=== PATIENT | female | born 1940 | race Caucasian/White ===

== ENCOUNTER 2021-02-19 10:48 | Observation (INO) | payer MEDICARE, BC ==
--- NOTE | 2021-02-19 11:24 | EDM.PDOC ---
ED HPI GENERAL MEDICAL PROBLEM - General Chief Complaint: Cardiovascular Problem Stated Complaint: MEDICAL VIA [facility] Time Seen by Provider: 02/19/21 11:05 Source of Information: Reports: Patient, Old Records, RN History Limitations: Reports: No Limitations - History of Present Illness INITIAL COMMENTS - FREE TEXT/NARRATIVE: 80 yo female was found at her assisted living facility to have a significant drop in her BP with standing. She has been falling a lot more often lately. Comes in wearing a sling on her L arm for an injury to her L shoulder from a recent fall. It apparently only became known about the BP postural dropping today. Brianna denies fever, CP, diarrhea, vomiting, melena or hematochezia. She recently had a dosage reduction in her Norvasc from 10 mg to 5 mg daily. Onset: Unknown/Unsure Duration: Getting Worse (possibly) Location: Reports: Generalized Quality: Reports: Other (pain not an issue with the BP) Severity: Moderate Improves with: Reports: Other (lying or sitting) Worsens with: Reports: Other (standing) Context: Reports: Other (see HPI) Associated Symptoms: Denies: Chest Pain, Cough, Diaphoresis, Fever/Chills, Headaches, Nausea/Vomiting, Seizure, Shortness of Breath, Syncope, Other (frequent falls) Treatments COLLATOR: Reports: Other (see below) (none) - Related Data Allergies Allergy/AdvReac Type Severity Reaction Status Date / Time adhesive tape Allergy Cannot Verified 12/15/20 10:33 Remember Aminoglycosides Allergy Cannot Verified 12/15/20 10:33 Remember bacitracin Allergy Cannot Verified 12/15/20 10:33 [From Neosporin Remember ([id number])] Mercurial Analogues Allergy Cannot Verified 12/15/20 10:33 Remember neomycin Allergy Cannot Verified 12/15/20 10:33 Remember polymyxin B Allergy Cannot Verified 12/15/20 10:33 Remember propylene glycol Allergy Cannot Verified 12/15/20 10:33 Remember Home Meds: Home Meds Acetaminophen [Tylenol] 650 mg PO Q6H PRN 12/14/20 [History] Ascorbic Acid [Vitamin C] 1,000 mg PO DAILY 12/14/20 [History] Cholecalciferol (Vitamin D3) [Vitamin D3] 2,000 unit PO DAILY 12/14/20 [History] Docusate Sodium 200 mg PO BEDTIME 12/14/20 [History] Donepezil HCl [Aricept] 10 mg PO DAILY 12/14/20 [History] Fluticasone Propionate [Flonase Allergy Relief] 1 spray MAX Q12H PRN 12/14/20 [History] Levothyroxine Sodium [Synthroid] 50 mcg PO ACBREAKFAST 12/14/20 [History] Lidocaine [Aspercreme] 1 each TP DAILY PRN 12/14/20 [History] Pantoprazole Sodium [Protonix] 40 mg PO DAILY 12/14/20 [History] Sertraline HCl 37.5 mg PO DAILY 12/14/20 [History] amLODIPine Besylate [Norvasc] 5 mg PO DAILY 12/14/20 [History] risperiDONE [RisperiDAL] 0.25 mg PO DAILY 12/14/20 [History] Calcium Carbonate [Tums] 1 tab PO DAILY PRN 12/15/20 [History] Past Medical History HEENT History: Reports: Impaired Vision Cardiovascular History: Reports: Hypertension, Other (See Below) 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 Gastrointestinal History: Reports: Inflammatory Bowel Disease Musculoskeletal History: Reports: Other (See Below) Other Musculoskeletal History: broken collar bone Psychiatric History: Reports: Dementia, Depression Endocrine/Metabolic History: Reports: Hypothyroidism Oncologic (Cancer) History: Reports: Hodgkin's Lymphoma - Infectious Disease History Infectious Disease History: Reports: Chicken Pox, Measles, Mumps Social & Family History - Tobacco Use Tobacco Use Status *Q: Never Tobacco User - Caffeine Use Caffeine Use: Reports: Coffee ED ROS GENERAL - Review of Systems Review Of Systems: See Below Constitutional: Reports: No Symptoms HEENT: Reports: No Symptoms Respiratory: Reports: No Symptoms Cardiovascular: Reports: Lightheadedness (with standing) GI/Abdominal: Reports: No Symptoms. Denies: Black Stool, Bloody Stool, Diarrhea, Hematemesis, Hematochezia, Melena, Nausea, Vomiting : Reports: No Symptoms Musculoskeletal: Reports: No Symptoms Skin: Reports: Bruising (L shoulder area from a previous fall) Neurological: Reports: No Symptoms ED EXAM, GENERAL - Physical Exam Exam: See Below Exam Limited By: No Limitations General Appearance: Alert, WD/WN, No Apparent Distress Eye Exam: Bilateral Eye: Normal Inspection Ears: Normal External Exam, Normal Canal, Hearing Grossly Normal Ear Exam: Bilateral Ear: Auricle Normal, Canal Normal Nose: Normal Inspection, No Blood Throat/Mouth: Normal Inspection, Normal Lips, Normal Oropharynx, Normal Voice, No Airway Compromise Head: Atraumatic, Normocephalic Neck: Normal Inspection Respiratory/Chest: No Respiratory Distress, Lungs Clear, Normal Breath Sounds, No Accessory Muscle Use Cardiovascular: Regular Rate, Rhythm, No Edema GI/Abdominal: Normal Bowel Sounds, Soft, Non-Tender, No Distention Extremities: Normal Inspection, Normal Range of Motion, Non-Tender, Pedal Edema (trace pitting edema to both lower legs). No: No Pedal Edema Neurological: Alert, Oriented, CN II-XII Intact, Normal Cognition, No Larry r/Sensory Deficits Psychiatric: Normal Affect, Normal Mood Skin Exam: Warm, Dry, Intact, Normal Color, No Rash, Ecchymosis (L shoulder area) Course - Vital Signs Text/Narrative:: discussed with Dr. Stallworth @ [facility] Last Recorded V/S: Last Vital Signs Temp 36.4 C 02/19/21 11:03 Pulse 58 L 02/19/21 11:03 Resp 19 02/19/21 11:03 BP 176/67 H 02/19/21 11:03 Pulse Ox 97 02/19/21 11:03 Orthostatic Blood Pressure [ 178/71 Standing] Orthostatic Blood Pressure [ 157/68 Sitting] Orthostatic Blood Pressure [ 109/60 Supine] - Orders/Labs/Meds Orders: Active Orders 24 hr Category Date Time Status Orthostatic Vital Signs [RC] ASDIRECTED Care 02/19/21 13:28 Active Labs: Laboratory Tests 02/19/21 02/19/21 02/19/21 Range/Units 11:24 11:24 12:31 WBC 6.0 (4.5-11.0) K/uL RBC 4.18 (3.30-5.50) M/uL Hgb 12.5 (12.0-15.0) g/dL Hct 38.0 (36.0-48.0) % MCV 91 (80-98) fL MCH 30 (27-31) pg MCHC 33 (32-36) % Plt Count 228 (150-400) K/uL Sodium 140 (140-148) mmol/L Potassium 4.2 (3.6-5.2) mmol/L Chloride 103 (100-108) mmol/L Carbon Dioxide 29 (21-32) mmol/L Anion Gap 8.2 (5.0-14.0) mmol/L BUN 14 (7-18) mg/dL Creatinine 0.9 (0.6-1.0) mg/dL Est Cr Clr Drug Dosing 47.29 mL/min Estimated GFR (MDRD) > 60 (>60) Glucose 109 H (74-106) mg/dL Calcium 9.3 (8.5-10.1) mg/dL Troponin I < 0.017 (0.000-0.056) ng/mL Urine Color Yellow (YELLOW) Urine Appearance Clear (CLEAR) Urine pH 8.5 H (5.0-8.0) Ur Specific [place] 1.020 (1.008-1.030) Urine Protein Negative (NEGATIVE) mg/dL Urine Glucose (UA) Negative (NEGATIVE) mg/dL Urine Ketones Negative (NEGATIVE) mg/dL Urine Occult Blood Negative (NEGATIVE) Urine Nitrite Negative (NEGATIVE) Urine Bilirubin Negative (NEGATIVE) Urine Urobilinogen 0.2 (0.2-1.0) EU/dL Ur Leukocyte Esterase Negative (NEGATIVE) Urine RBC Not seen (0-5) Urine WBC Not seen (0-5) Ur Epithelial Cells Not seen Amorphous Sediment Few Urine Bacteria Not seen Urine Mucus Few Meds: Medications Discontinued Medications Generic Name Dose Route Start Last Admin Trade Name Zachary PRN Reason Stop Dose Admin Lactated Ringer's 1,000 mls @ 1,000 mls/hr 02/19/21 12:23 02/19/21 12:30 Ringers, Lactated IV 02/19/21 13:22 1,000 mls/hr BOLUS ONE Administration - Re-Assessments/Exams Free Text/Narrative Re-Assessment/Exam: 02/19/21 14:36 no improvement in orthostats after IV fluids x 1 liter Departure - Departure Time of Disposition: 14:36 Disposition: Admitted As Inpatient 68 Condition: Fair Clinical Impression: Orthostatic hypotension Referrals: PCP,None [Primary Care Provider] - Forms: ED Department Discharge Sepsis Event Note (ED) - Evaluation Sepsis Screening Result: No Definite Risk - Focused Exam Vital Signs: Vital Signs Temp Pulse Resp BP Pulse Ox 02/19/21 11:03 36.4 C 58 L 19 176/67 H 97 02/19/21 10:54 36.4 C 58 L 19 176/67 H 97 - My Orders Last 24 Hours: My Active Orders 02/19/21 13:28 Orthostatic Vital Signs [RC] ASDIRECTED - Assessment/Plan Last 24 Hours: My Active Orders 02/19/21 13:28 Orthostatic Vital Signs [RC] ASDIRECTED
[2021-02-19] MEDS ORDERED: Lactated Ringers 1,000 ML IV ONE (12:23)
--- NOTE | 2021-02-19 15:03 | PCM.HP.2 ---
H&P History of Present Illness - General Date of Service: 02/19/21 Admit Problem/Dx: Admission Diagnosis/Problem Admission Diagnosis/Problem Syncope due to orthostatic hypotension Source of Information: Patient, [facility] Records (assisted living), Provider History Limitations: Reports: No Limitations - History of Present Illness Initial Comments - Free Text/Narative: CC: I'm so tired in the morning HPI: Brianna presents to the emergency room today with abnormal orthostatic vital signs noted this morning at her assisted living facility. She has had several falls over the past week or 2. 1 of these falls resulted in a fracture of her left clavicle. She reportedly had another unwitnessed fall last night. Assisted-living staff checked her orthostatic vital signs and noted a significant drop with standing so they sent her to the emergency room. She reports that overall she feels fairly well. She does endorse significant fatigue. She wakes up in the morning tired and has difficulty getting enough motivation to get through the day. Getting through the day has been a struggle because of a lack of energy. She thinks she has been sleeping well. She thinks she has been eating well. With regard to her falls, she thinks that she gets some sort of warning but she does not report any dizziness or lightheadedness. She just has a feeling that something is going to happen and tries to find someplace solid to hold on. She has not had shortness of breath, chest pain or palpitations. No abdominal pain or nausea. No change in bowel or bladder habits. She did recently have her amlodipine decreased from 10 to 5 mg. No other new medications or medication changes. No fevers. Work-up in the emergency room revealed a significant orthostatic change but laboratory studies are unremarkable. Patient received 1 L of fluids and still had a significant drop in her orthostatic vital signs so she will be admitted for observation. - Related Data Allergies/Adverse Reactions: Allergies Allergy/AdvReac Type Severity Reaction Status Date / Time adhesive tape Allergy Cannot Verified 12/15/20 10:33 Remember Aminoglycosides Allergy Cannot Verified 12/15/20 10:33 Remember bacitracin Allergy Cannot Verified 12/15/20 10:33 [From Neosporin Remember ([id number])] Mercurial Analogues Allergy Cannot Verified 12/15/20 10:33 Remember neomycin Allergy Cannot Verified 12/15/20 10:33 Remember polymyxin B Allergy Cannot Verified 12/15/20 10:33 Remember propylene glycol Allergy Cannot Verified 12/15/20 10:33 Remember Home Medications: Home Meds Acetaminophen [Tylenol] 650 mg PO Q6H PRN 12/14/20 [History] Ascorbic Acid [Vitamin C] 1,000 mg PO DAILY 12/14/20 [History] Cholecalciferol (Vitamin D3) [Vitamin D3] 2,000 unit PO DAILY 12/14/20 [History] Docusate Sodium 200 mg PO BEDTIME 12/14/20 [History] Donepezil HCl [Aricept] 10 mg PO DAILY 12/14/20 [History] Fluticasone Propionate [Flonase Allergy Relief] 1 spray MAX Q12H PRN 12/14/20 [History] Levothyroxine Sodium [Synthroid] 50 mcg PO ACBREAKFAST 12/14/20 [History] Lidocaine [Aspercreme] 1 each TP DAILY PRN 12/14/20 [History] Pantoprazole Sodium [Protonix] 40 mg PO DAILY 12/14/20 [History] Sertraline HCl 37.5 mg PO DAILY 12/14/20 [History] amLODIPine Besylate [Norvasc] 5 mg PO DAILY 12/14/20 [History] risperiDONE [RisperiDAL] 0.25 mg PO DAILY 12/14/20 [History] Calcium Carbonate [Tums] 1 tab PO DAILY PRN 12/15/20 [History] Past Medical History HEENT History: Reports: Impaired Vision Cardiovascular History: Reports: Hypertension, Other (See Below) 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 Gastrointestinal History: Reports: Inflammatory Bowel Disease Musculoskeletal History: Reports: Other (See Below) Other Musculoskeletal History: broken collar bone Psychiatric History: Reports: Dementia, Depression Endocrine/Metabolic History: Reports: Hypothyroidism Oncologic (Cancer) History: Reports: Hodgkin's Lymphoma - Infectious Disease History Infectious Disease History: Reports: Chicken Pox, Measles, Mumps Social & Family History - Family History Cardiac: Denies: CAD - Tobacco Use Tobacco Use Status *Q: Never Tobacco User - Caffeine Use Caffeine Use: Reports: Coffee - Alcohol Use Alcohol Use History: No H&P Review of Systems - Review of Systems: Review Of Systems: See Below Free Text/Narrative: A complete 12 point review of systems was obtained. Pertinent positives and negatives are noted in the history of present illness. All other systems were reviewed and were negative except as noted. Exam - Exam Exam: See Below - Vital Signs Vital Signs: Last Vital Signs Temp 36.4 C 02/19/21 11:03 Pulse 58 L 02/19/21 11:03 Resp 19 02/19/21 11:03 BP 176/67 H 02/19/21 11:03 Pulse Ox 97 02/19/21 11:03 Orthostatic Blood Pressure [ 178/71 Standing] Orthostatic Blood Pressure [ 157/68 Sitting] Orthostatic Blood Pressure [ 109/60 Supine] Weight: 62.596 kg - Exam Quality Assessment: No: Supplemental Oxygen General: Alert, Oriented, Cooperative. No: Mild Distress HEENT: Conjunctiva Clear, Mucosa Moist & [place] Neck: Supple, Trachea Midline Lungs: Clear to Auscultation, Normal Respiratory Effort Cardiovascular: Regular Rate, Regular Rhythm. No: Systolic Murmur, Gallop/S3 GI/Abdominal Exam: Normal Bowel Sounds, Soft, Non-Tender, No Distention Back Exam: Normal Inspection, Full Range of Motion Extremities: No Pedal Edema. No: Increased Warmth Peripheral Pulses: 2+: Dorsalis Pedis (L), Dorsalis Pedis (R) Skin: Warm, Dry Neuro Extensive - Mental Status: Alert, Nl Response to Commands Neuro Extensive - Motor, Sensory, Reflexes: No: Dysarthria, Abnormal Motor Psychiatric: Alert, Normal Affect - Patient Data Lab Results Last 24 hrs: Laboratory Results - last 24 hr 02/19/21 02/19/21 02/19/21 Range/Units 11:24 11:24 12:31 WBC 6.0 (4.5-11.0) K/uL RBC 4.18 (3.30-5.50) M/uL Hgb 12.5 (12.0-15.0) g/dL Hct 38.0 (36.0-48.0) % MCV 91 (80-98) fL MCH 30 (27-31) pg MCHC 33 (32-36) % Plt Count 228 (150-400) K/uL Sodium 140 (140-148) mmol/L Potassium 4.2 (3.6-5.2) mmol/L Chloride 103 (100-108) mmol/L Carbon Dioxide 29 (21-32) mmol/L Anion Gap 8.2 (5.0-14.0) mmol/L BUN 14 (7-18) mg/dL Creatinine 0.9 (0.6-1.0) mg/dL Est Cr Clr Drug Dosing 47.29 mL/min Estimated GFR (MDRD) > 60 (>60) Glucose 109 H (74-106) mg/dL Calcium 9.3 (8.5-10.1) mg/dL Troponin I < 0.017 (0.000-0.056) ng/mL Urine Color Yellow (YELLOW) Urine Appearance Clear (CLEAR) Urine pH 8.5 H (5.0-8.0) Ur Specific [place] 1.020 (1.008-1.030) Urine Protein Negative (NEGATIVE) mg/dL Urine Glucose (UA) Negative (NEGATIVE) mg/dL Urine Ketones Negative (NEGATIVE) mg/dL Urine Occult Blood Negative (NEGATIVE) Urine Nitrite Negative (NEGATIVE) Urine Bilirubin Negative (NEGATIVE) Urine Urobilinogen 0.2 (0.2-1.0) EU/dL Ur Leukocyte Esterase Negative (NEGATIVE) Urine RBC Not seen (0-5) Urine WBC Not seen (0-5) Ur Epithelial Cells Not seen Amorphous Sediment Few Urine Bacteria Not seen Urine Mucus Few Result Diagrams: 02/19/21 11:24 02/19/21 11:24 Sepsis Event Note - Evaluation Sepsis Screening Result: No Definite Risk - Focused Exam Vital Signs: Vital Signs Temp Pulse Resp BP Pulse Ox 02/19/21 11:03 36.4 C 58 L 19 176/67 H 97 02/19/21 10:54 36.4 C 58 L 19 176/67 H 97 *Q Meaningful Use (ADM) - VTE Risk Assess *Q Each Risk Factor Represents 1 Point: None Total Score 1 Point Risk Factors: 0 Each Risk Factor Represents 2 Points: Malignancy (present or previous) Total Score 2 Point Risk Factors: 2 Each Risk Factor Represents 3 Points: Age 75 Years or Greater Total Score 3 Point Risk Factors: 3 Each Risk Factor Represents 5 Points: None Total Score 5 Point Risk Factors: 0 Venous Thromboembolism Risk Factor Score *Q: 5 - Problem List (1) Syncope due to orthostatic hypotension SNOMED Code(s): 074532887 ICD Code: I95.1 - ORTHOSTATIC HYPOTENSION Status: Acute Current Visit: Yes (2) Alzheimer's dementia without behavioral disturbance SNOMED Code(s): 79862990 ICD Code: G30.9 - ALZHEIMER'S DISEASE, UNSPECIFIED; F02.80 - DEMENTIA IN OTH DISEASES CLASSD ELSWHR W/O BEHAVRL DISTURB Status: Chronic Current Visit: Yes Qualifiers: Alzheimer's disease onset: late-onset Qualified Code(s): G30.1 - Alzheimer's disease with late onset; F02.80 - Dementia in other diseases classified elsewhere without behavioral disturbance (3) Essential hypertension SNOMED Code(s): 46725327 ICD Code: I10 - ESSENTIAL (PRIMARY) HYPERTENSION Status: Chronic Current Visit: Yes Problem List Initiated/Reviewed/Updated: Yes Orders Last 24hrs: Active Orders 24 hr Category Date Time Status Patient Status Manage Transfer [TRANSFER] Routine ADT 02/19/21 14:53 Ordered Orthostatic Vital Signs [RC] ASDIRECTED Care 02/19/21 13:28 Active Resuscitation Status Routine Resus Stat 02/19/21 14:55 Ordered Assessment/Plan Comment:: ASSESSMENT AND PLAN - Orthostatic hypotension with syncope-biggest suspicion at this time is for medications with most concerning potential culprits being the donepezil versus amlodipine. Blood pressure is actually on the high side try and hesitant to stop the amlodipine. She is borderline bradycardic. With bradycardia and syncope potential side effects of the donepezil this seems like the best place to start. She is not dehydrated. There is no evidence for infection. -Stop donepezil -Cardiac monitoring -Repeat orthostatic vitals in the morning -Consider alternative antihypertensive if desired results are not achieved with above changes Alzheimer's dementia without behavioral disturbance-no behavior issues so far. Concerned about donepezil as above. -Continue risperidone -Melatonin at bedtime Essential hypertension-moderate elevation of blood pressure and she may need some additional adjustments but we will hold off on these until her blood pressure has stabilized and the orthostasis resolved. Hypothyroidism-TSH pending Maintenance issues - -DVT prophylaxis-mechanical -GI prophylaxis-PPI -Nutrition-regular -Quijano catheter-not indicated CODE STATUS -DNR/DNI Admission justification -this patient will be admitted for observation to monitor orthostatic changes and for cardiac monitoring during medication lee ges. Disposition -I anticipate discharge back to her assisted living after the hospital stay Primary care physician - Gregory Stallworth M.D. - Mortality Measure Prognosis:: Good
[2021-02-19] MEDS ORDERED: LORazepam 2 MG/ML SDV IVPUSH PRN (15:36)
[2021-02-19] MEDS ORDERED: Ondansetron 4 MG/2 ML SDV IV PRN (15:36)
[2021-02-19] MEDS ORDERED: Ondansetron 4 MG Tab.DIS PO PRN (15:36)
[2021-02-19] MEDS ORDERED: Calcium Carbonate 500 MG Tab.Chew PO PRN (17:25)
[2021-02-19] MEDS ORDERED: Fluticasone Propionate Nasal Spray 16 GM Bottle NAS PRN (17:35)
[2021-02-19] MEDS: risperiDONE 0.5 MG Tab PO SCH (21:24)
[2021-02-19] MEDS: Docusate Sodium 100 MG Cap PO SCH (21:24)
[2021-02-19] MEDS: Melatonin 3 MG Tab PO SCH (21:24)
[2021-02-20] MEDS ORDERED: amLODIPine 5 MG Tab PO SCH (09:00)
[2021-02-20] MEDS: Levothyroxine 50 MCG Tab PO SCH (09:02)
[2021-02-20] MEDS: Sertraline 25 MG Tab PO SCH (09:02)
[2021-02-20] MEDS: Cholecalciferol (Vitamin D3) 25 MCG Tab PO SCH (09:02)
[2021-02-20] MEDS: Ascorbic Acid 500 MG Tab PO SCH (09:03)
[2021-02-20] MEDS: Pantoprazole 40 MG Tab.CR PO SCH (09:03)
[2021-02-20] MEDS: Acetaminophen 325 MG Tab PO PRN ×2 (09:09→16:47)
[2021-02-20] MEDS ORDERED: Pneumococcal Polyvalent-23 Vaccine 0.5 ML SDV IM ONE (10:00)
--- NOTE | 2021-02-20 12:45 | PCM.PN ---
- General Info Date of Service: 02/20/21 Subjective Update: Ms. Gao continues to experience significant orthostasis as a likely cause of her recent weakness and lightheadedness. She is unable to provide meaningful information concerning symptoms or review of systems because of dementia. - Patient Data Vitals - Most Recent: Last Vital Signs Temp 97.9 F 02/20/21 11:00 Pulse 63 02/20/21 11:00 Resp 16 02/20/21 11:00 BP 150/68 H 02/20/21 11:00 Pulse Ox 99 02/20/21 11:00 Orthostatic Blood Pressure [ 99/56 Standing] Orthostatic Blood Pressure [ 184/60 Sitting] Orthostatic Blood Pressure [ 175/54 Supine] Weight - Most Recent: 141 lb 5.061 oz I&O - Last 24 Hours: Intake & Output 02/19/21 02/20/21 02/20/21 22:59 06:59 14:59 Intake Total 200 Output Total 600 250 Balance -600 -250 200 Lab Results Last 24 Hours: Laboratory Results - last 24 hr 02/19/21 02/19/21 Range/Units 11:23 12:31 TSH, Ultra Sensitive 2.040 (0.358-3.740) uIU/mL Urine Color Yellow (YELLOW) Urine Appearance Clear (CLEAR) Urine pH 8.5 H (5.0-8.0) Ur Specific [place] 1.020 (1.008-1.030) Urine Protein Negative (NEGATIVE) mg/dL Urine Glucose (UA) Negative (NEGATIVE) mg/dL Urine Ketones Negative (NEGATIVE) mg/dL Urine Occult Blood Negative (NEGATIVE) Urine Nitrite Negative (NEGATIVE) Urine Bilirubin Negative (NEGATIVE) Urine Urobilinogen 0.2 (0.2-1.0) EU/dL Ur Leukocyte Esterase Negative (NEGATIVE) Urine RBC Not seen (0-5) Urine WBC Not seen (0-5) Ur Epithelial Cells Not seen Amorphous Sediment Few Urine Bacteria Not seen Urine Mucus Few Med Orders - Current: Current Medications Acetaminophen (Acetaminophen 325 Mg Tab) 650 mg PO Q4H PRN PRN Reason: Pain (Mild 1-3)/fever Last Admin: 02/20/21 09:09 Dose: 650 mg Documented by: Ascorbic Acid (Ascorbic Acid 500 Mg Tab) 1,000 mg PO DAILY [facility] Last Admin: 02/20/21 09:03 Dose: 1,000 mg Documented by: Calcium Carbonate/Glycine (Calcium Carbonate 500 Mg Tab.Chew) 500 mg PO DAILY PRN PRN Reason: Heartburn Cholecalciferol (Cholecalciferol (Vitamin D3) 25 Mcg Tab) 50 mcg PO DAILY [facility] Last Admin: 02/20/21 09:02 Dose: 50 mcg Documented by: Docusate Sodium (Docusate Sodium 100 Mg Cap) 200 mg PO BEDTIME [facility] Last Admin: 02/19/21 21:24 Dose: 200 mg Documented by: Fluticasone Propionate (Fluticasone Propionate Nasal [place] 16 Gm Bottle) 0 gm MAX Q12H PRN PRN Reason: Allergies Levothyroxine Sodium (Levothyroxine 50 Mcg Tab) 50 mcg PO ACBREAKFAST [facility] Last Admin: 02/20/21 09:02 Dose: 50 mcg Documented by: Lorazepam (Lorazepam 2 Mg/Ml Sdv) 0.5 mg IVPUSH Q4H PRN PRN Reason: Nausea/Vomiting Magnesium Hydroxide (Magnesium Hydroxide 400 Mg/5 Ml Susp 30 Ml Cup) 30 ml PO Q12H PRN PRN Reason: Constipation Melatonin (Melatonin 3 Mg Tab) 9 mg PO BEDTIME [facility] Last Admin: 02/19/21 21:24 Dose: 9 mg Documented by: Ondansetron HCl (Ondansetron 4 Mg/2 Ml Sdv) 4 mg IV Q6H PRN PRN Reason: Nausea/Vomiting Ondansetron HCl (Ondansetron 4 Mg Tab.Dis) 4 mg PO Q6H PRN PRN Reason: Nausea able to take PO Pantoprazole Sodium (Pantoprazole 40 Mg Tab.Cr) 40 mg PO ACBREAKFAST [facility] Last Admin: 02/20/21 09:03 Dose: 40 mg Documented by: Risperidone (Risperidone 0.5 Mg Tab) 0.25 mg PO BEDTIME [facility] Last Admin: 02/19/21 21:24 Dose: 0.25 mg Documented by: Senna/Docusate Sodium (Docusate Sodium/Sennosides 50-8.6 Mg Tab) 1 tab PO BID PRN PRN Reason: Constipation Sertraline HCl (Sertraline 25 Mg Tab) 37.5 mg PO DAILY [facility] Last Admin: 02/20/21 09:02 Dose: 37.5 mg Documented by: Discontinued Medications Amlodipine Besylate (Amlodipine 5 Mg Tab) 5 mg PO DAILY [facility] Lactated Ringer's (Ringers, Lactated) 1,000 mls @ 1,000 mls/hr IV BOLUS ONE Stop: 02/19/21 13:22 Last Admin: 02/19/21 12:30 Dose: 1,000 mls/hr Documented by: Pneumococcal Polyvalent Vaccine (Pneumococcal Polyvalent-23 Vaccine 0.5 Ml Sdv) 0.5 ml IM .ONCE ONE Stop: 02/20/21 10:01 Last Admin: 02/20/21 11:05 Dose: Not Given Documented by: - Exam General: Alert, Cooperative, Mild Distress Lungs: Clear to Auscultation, Normal Respiratory Effort Cardiovascular: Regular Rate, Regular Rhythm, No Murmurs GI/Abdominal Exam: Soft, Non-Tender, No Organomegaly, No Distention Extremities: Non-Tender, No Pedal Edema Neurological: Other (She is noted to have a very mild resting tremor of her right upper extremity, paucity of movement, and masklike facies.) - Patient Data Lab Results Last 24 hrs: Laboratory Results - last 24 hr 02/19/21 02/19/21 Range/Units 11:23 12:31 TSH, Ultra Sensitive 2.040 (0.358-3.740) uIU/mL Urine Color Yellow (YELLOW) Urine Appearance Clear (CLEAR) Urine pH 8.5 H (5.0-8.0) Ur Specific [place] 1.020 (1.008-1.030) Urine Protein Negative (NEGATIVE) mg/dL Urine Glucose (UA) Negative (NEGATIVE) mg/dL Urine Ketones Negative (NEGATIVE) mg/dL Urine Occult Blood Negative (NEGATIVE) Urine Nitrite Negative (NEGATIVE) Urine Bilirubin Negative (NEGATIVE) Urine Urobilinogen 0.2 (0.2-1.0) EU/dL Ur Leukocyte Esterase Negative (NEGATIVE) Urine RBC Not seen (0-5) Urine WBC Not seen (0-5) Ur Epithelial Cells Not seen Amorphous Sediment Few Urine Bacteria Not seen Urine Mucus Few Result Diagrams: 02/19/21 11:24 02/19/21 11:24 Sepsis Event Note - Evaluation Sepsis Screening Result: No Definite Risk - Focused Exam Vital Signs: Vital Signs Temp Temp Pulse Resp BP Pulse Ox 02/20/21 11:00 97.9 F 63 16 150/68 H 99 02/20/21 07:00 97.9 F 16 148/64 H 100 02/20/21 02:46 97.9 F 74 18 124/71 97 - Problem List Review Problem List Initiated/Reviewed/Updated: Yes - My Orders Last 24 Hours: My Active Orders 02/20/21 12:35 Communication Order [RC] ROUTINE Consult to Dance Hall Host/Hostess [CONS] Routine - Plan Plan:: ASSESSMENT AND PLAN - Orthostatic hypotension with syncope-biggest suspicion at this time is for medications with most concerning potential culprits being the donepezil versus amlodipine. She may also have autonomic insufficiency possibly related to underlying Parkinson's. On exam today is noted to have a mild resting tremor of her right upper extremity with masklike facies and paucity of movement -Stop donepezil -Cardiac monitoring -Repeat orthostatic vitals -Discontinue amlodipine -High sodium diet -Thigh-high support hose, on in a.m. off at at bedtime -Keep head of bed elevated at 45 degrees at all times Alzheimer's dementia without behavioral disturbance-no behavior issues so far. Concerned about donepezil as above. -Continue risperidone -Melatonin at bedtime Essential hypertension Hypothyroidism Maintenance issues - -DVT prophylaxis-mechanical -GI prophylaxis-PPI -Nutrition-regular -Quijano catheter-not indicated CODE STATUS -DNR/DNI Admission justification -this patient will be admitted for observation to monitor orthostatic changes and for cardiac monitoring during medication changes. Disposition -I anticipate discharge back to her assisted living after the hospital stay Primary care physician - Gregory Liu NP
[2021-02-20] MEDS: Docusate Sodium 100 MG Cap PO SCH (21:09)
[2021-02-20] MEDS: Magnesium Hydroxide 400 MG/5 ML Susp 30 ML Cup PO PRN (21:09)
[2021-02-20] MEDS: Melatonin 3 MG Tab PO SCH (21:09)
[2021-02-20] MEDS: risperiDONE 0.5 MG Tab PO SCH (21:09)
[2021-02-21] MEDS: Levothyroxine 50 MCG Tab PO SCH (07:26)
[2021-02-21] MEDS: Pantoprazole 40 MG Tab.CR PO SCH (07:26)
[2021-02-21] MEDS: Sertraline 25 MG Tab PO SCH (09:32)
[2021-02-21] MEDS: Ascorbic Acid 500 MG Tab PO SCH (09:32)
[2021-02-21] MEDS: Magnesium Hydroxide 400 MG/5 ML Susp 30 ML Cup PO PRN (09:32)
[2021-02-21] MEDS: Cholecalciferol (Vitamin D3) 25 MCG Tab PO SCH (09:32)
--- NOTE | 2021-02-21 12:27 | PCM.DCSUM1 ---
Discharge Summary - Hospital Course Brief History: Ms. Gao is a 80-year-old woman who was admitted through the emergency department with weakness, lightheadedness, and recent falls, secondary to orthostatic hypotension. - Discharge Data Discharge Date: 02/21/21 Discharge Disposition: Home, Self-Care 01 Condition: Fair - Referral to Home Health Primary Care Physician: PCP None - Discharge Diagnosis/Problem(s) (1) Orthostatic hypotension SNOMED Code(s): 02030894 ICD Code: I95.1 - ORTHOSTATIC HYPOTENSION Status: Acute Current Visit: Yes (2) Syncope due to orthostatic hypotension SNOMED Code(s): 668378220 ICD Code: I95.1 - ORTHOSTATIC HYPOTENSION Status: Acute Current Visit: Yes (3) Alzheimer's dementia without behavioral disturbance SNOMED Code(s): 14329930 ICD Code: G30.9 - ALZHEIMER'S DISEASE, UNSPECIFIED; F02.80 - DEMENTIA IN OTH DISEASES CLASSD ELSWHR W/O BEHAVRL DISTURB Status: Chronic Current Visit: Yes Qualifiers: Alzheimer's disease onset: late-onset Qualified Code(s): G30.1 - Alzheimer's disease with late onset; F02.80 - Dementia in other diseases classified elsewhere without behavioral disturbance (4) History of CVA (cerebrovascular accident) SNOMED Code(s): 951413084 ICD Code: Z86.73 - PRSNL HX OF TIA (TIA), AND CEREB INFRC W/O RESID DEFICITS Status: Chronic Current Visit: No - Patient Summary/Data Consults: Consultations 02/20/21 07:00 PT Evaluation and Treatment [CONS] Routine Please Evaluate and Treat. PT Reason for Consult: Strengthening This query below is only for informational purposes and is not editable. 02/20/21 12:35 Consult to Research Quality Assurance Analyst [CONS] Routine Comment: Physician Instructions: Quantity: Reason for Consult: High sodium diet for orthostatic hypotension Hospital Course: Ms. Gao presented to the emergency room with abnormal orthostatic vital signs noted at her assisted living facility. She has had several falls over the past week or 2. 1 of these falls resulted in a fracture of her left clavicle. She reportedly had another unwitnessed fall on the evening prior to admission. Assisted-living staff checked her orthostatic vital signs and noted a significant drop with standing so they sent her to the emergency room. She reports that overall she feels fairly well. She does endorse significant fatigue. She wakes up in the morning tired and has difficulty getting enough motivation to get through the day. Getting through the day has been a struggle because of a lack of energy. Work-up in the emergency room revealed a significant orthostatic change but laboratory studies are unremarkable. Patient received 1 L of fluids and still had a significant drop in her orthostatic vital signs so she was admitted for observation. She received further IV fluids through the night but remained orthostatic. Aricept was discontinued because of possible contribution to orthostasis. Amlodipine was also discontinued and she was placed on a high sodium diet. Head of her bed was kept elevated at 45 degrees. While hospitalized she did show some signs that might be consistent with Parkinson's disease including a slight pill-rolling tremor of her right upper extremity, paucity of movement, and masklike facies. By the time of discharge orthostasis had improved significantly and she denied symptoms of lightheadedness. She will be discharged to the snf because she is not felt to be safe for discharge back to her semiindependent living situation. Consider neurology consult for further evaluation of possible Parkinson's disease. Activity will be as tolerated and she will resume her usual diet. - Patient Instructions Diet, Other: High sodium diet Activity: As Tolerated Activity, Other: Keep head of bed elevated at 45 degrees at all times Other/Special Instructions: Please schedule follow-up appointment with primary care provider within 1 week - Discharge Plan *PRESCRIPTION DRUG MONITORING PROGRAM REVIEWED*: Not Applicable *COPY OF PRESCRIPTION DRUG MONITORING REPORT IN PATIENT SUSAN: Not Applicable Home Medications: Home Meds Acetaminophen [Tylenol] 650 mg PO Q6H PRN 12/14/20 [History] Ascorbic Acid [Vitamin C] 1,000 mg PO DAILY 12/14/20 [History] Cholecalciferol (Vitamin D3) [Vitamin D3] 2,000 unit PO DAILY 12/14/20 [History] Docusate Sodium 200 mg PO BEDTIME 12/14/20 [History] Fluticasone Propionate [Flonase Allergy Relief] 1 spray MAX Q12H PRN 12/14/20 [History] Levothyroxine Sodium [Synthroid] 50 mcg PO ACBREAKFAST 12/14/20 [History] Lidocaine [Aspercreme Lidocaine] 1 each TP DAILY PRN 12/14/20 [History] Pantoprazole Sodium [Protonix] 40 mg PO DAILY 12/14/20 [History] Sertraline HCl 37.5 mg PO DAILY 12/14/20 [History] risperiDONE [RisperiDAL] 0.25 mg PO DAILY 12/14/20 [History] Calcium Carbonate [Tums] 1 tab PO DAILY PRN 12/15/20 [History] Referrals: Daniele Harden MD [Physician] - - Discharge Summary/Plan Comment DC Time >30 min.: No - Patient Data Vitals - Most Recent: Last Vital Signs Temp 97.9 F 02/21/21 12:00 Pulse 60 02/21/21 12:00 Resp 16 02/21/21 12:00 BP 137/61 02/21/21 12:00 Pulse Ox 98 02/21/21 12:00 Orthostatic Blood Pressure [ 133/68 Standing] Orthostatic Blood Pressure [ 149/60 Sitting] Orthostatic Blood Pressure [ 175/54 Supine] Weight - Most Recent: 141 lb 5.061 oz I&O - Last 24 hours: Intake & Output 02/20/21 02/21/21 02/21/21 22:59 06:59 14:59 Intake Total 620 660 Output Total 400 225 150 Balance -400 395 510 Med Orders - Current: Current Medications Acetaminophen (Acetaminophen 325 Mg Tab) 650 mg PO Q4H PRN PRN Reason: Pain (Mild 1-3)/fever Last Admin: 02/20/21 16:47 Dose: 650 mg Documented by: Ascorbic Acid (Ascorbic Acid 500 Mg Tab) 1,000 mg PO DAILY [facility] Last Admin: 02/21/21 09:32 Dose: 1,000 mg Documented by: Calcium Carbonate/Glycine (Calcium Carbonate 500 Mg Tab.Chew) 500 mg PO DAILY PRN PRN Reason: Heartburn Cholecalciferol (Cholecalciferol (Vitamin D3) 25 Mcg Tab) 50 mcg PO DAILY [facility] Last Admin: 02/21/21 09:32 Dose: 50 mcg Documented by: Docusate Sodium (Docusate Sodium 100 Mg Cap) 200 mg PO BEDTIME [facility] Last Admin: 02/20/21 21:09 Dose: 200 mg Documented by: Fluticasone Propionate (Fluticasone Propionate Nasal [place] 16 Gm Bottle) 0 gm MAX Q12H PRN PRN Reason: Allergies Levothyroxine Sodium (Levothyroxine 50 Mcg Tab) 50 mcg PO ACBREAKFAST [facility] Last Admin: 02/21/21 07:26 Dose: 50 mcg Documented by: Lorazepam (Lorazepam 2 Mg/Ml Sdv) 0.5 mg IVPUSH Q4H PRN PRN Reason: Nausea/Vomiting Magnesium Hydroxide (Magnesium Hydroxide 400 Mg/5 Ml Susp 30 Ml Cup) 30 ml PO Q12H PRN PRN Reason: Constipation Last Admin: 02/21/21 09:32 Dose: 30 ml Documented by: Melatonin (Melatonin 3 Mg Tab) 9 mg PO BEDTIME [facility] Last Admin: 02/20/21 21:09 Dose: 9 mg Documented by: Ondansetron HCl (Ondansetron 4 Mg/2 Ml Sdv) 4 mg IV Q6H PRN PRN Reason: Nausea/Vomiting Ondansetron HCl (Ondansetron 4 Mg Tab.Dis) 4 mg PO Q6H PRN PRN Reason: Nausea able to take PO Pantoprazole Sodium (Pantoprazole 40 Mg Tab.Cr) 40 mg PO ACBREAKFAST [facility] Last Admin: 02/21/21 07:26 Dose: 40 mg Documented by: Risperidone (Risperidone 0.5 Mg Tab) 0.25 mg PO BEDTIME [facility] Last Admin: 02/20/21 21:09 Dose: 0.25 mg Documented by: Senna/Docusate Sodium (Docusate Sodium/Sennosides 50-8.6 Mg Tab) 1 tab PO BID PRN PRN Reason: Constipation Sertraline HCl (Sertraline 25 Mg Tab) 37.5 mg PO DAILY [facility] Last Admin: 02/21/21 09:32 Dose: 37.5 mg Documented by: Discontinued Medications Amlodipine Besylate (Amlodipine 5 Mg Tab) 5 mg PO DAILY [facility] Lactated Ringer's (Ringers, Lactated) 1,000 mls @ 1,000 mls/hr IV BOLUS ONE Stop: 02/19/21 13:22 Last Admin: 02/19/21 12:30 Dose: 1,000 mls/hr Documented by: Pneumococcal Polyvalent Vaccine (Pneumococcal Polyvalent-23 Vaccine 0.5 Ml Sdv) 0.5 ml IM .ONCE ONE Stop: 02/20/21 10:01 Last Admin: 02/20/21 11:05 Dose: Not Given Documented by: - Exam General: Reports: Alert, Cooperative, No Acute Distress. Denies: Oriented Lungs: Reports: Clear to Auscultation, Normal Respiratory Effort Cardiovascular: Reports: Regular Rate, Regular Rhythm, No Murmurs GI/Abdominal Exam: Soft, Non-Tender, No Organomegaly, No Distention Extremities: Non-Tender, No Pedal Edema
== END 2021-02-21 12:45 ==
LOC: JP.ED 10:48 → JP.MS 14:53
PROVIDERS: ADMIT Internal Medicine; ATTEND Internal Medicine
DX: I95.1 Orthostatic hypotension (principal); G30.9 Alzheimer's disease, unspecified; F02.80 Dementia in other diseases classified elsewhere, unspecified severity, without behavioral disturbance, psychotic disturbance, mood disturbance, and anxiety; Z86.73 Personal history of transient ischemic attack (TIA), and cerebral infarction without residual deficits; Z79.899 Other long term (current) drug therapy
CPT/HCPCS: 36415; 80048; 81001; 84443; 84484; 85027; 97116; 97162; 97530; 99285; A9270; G0378; J7120